=== PATIENT | female | born 1970 | race Caucasian/White ===

== ENCOUNTER → 2016-12-31 | Outpatient (CLI) | payer BC ==
[~2016-12-31] MED LIST: BUTO10SO; DICL1GEL28 TOP; DICL1GEL34 TOP; DILT120C PO; FENO54TA PO; FLUO20CA35 PO; GADAVIST IV PRN; IBUP-1050 PO; STDN NAE
--- NOTE | 2016-12-31 14:53 | DIAGNOSTIC IMAGING REPORT ---
BRAIN COMBO FOR MS CLINICAL HISTORY: Migraine headaches. Balance difficulties. Limb pain and numbness. Possible multiple sclerosis. COMPARISON STUDY: Head CT February 17, 2016. FINDINGS: There are no areas of restricted diffusion. No acute intracranial hemorrhage, midline shift or mass effect is present. Brain volume is normal. Ventricular system is normal. Basilar cisterns are patent. No extra axial collections are present. Flow-voids for the major intracranial vessels are present. There are no intracranial masses or pathologic enhancement. There is a 4 mm T2 hyperintense focus within the white matter of the right parietooccipital region shown on coronal image 20 of 28. No additional areas of signal abnormality are present. Calvarial signal is normal. Orbits are unremarkable. There is no evidence of a Chiari 1 malformation. IMPRESSION: 1. No acute intracranial findings. 2. No intracranial masses or pathologic enhancement. 3. Punctate 4 mm focus of signal abnormality within the white matter of the right parietooccipital region. This finding is of doubtful significance and the appearance is not suggestive of multiple sclerosis. Essentially, normal MRI of the brain. Electronically signed by: Paolo Fitzgerald M.D. 12/31/2016 2:51 PM Dictated Date/Time: 12/31/2016 2:40 PM
== END | disposition home or self-care (01) ==
LOC: C.MRI 13:29
PROVIDERS: ATTEND Nurse Practitioner Family
DX: R41.89 Other symptoms and signs involving cognitive functions and awareness (principal); G43.109 Migraine with aura, not intractable, without status migrainosus; R53.83 Other fatigue; R27.8 Other lack of coordination; R20.2 Paresthesia of skin

== ENCOUNTER 2017-02-12 15:33 | Emergency (ER) | payer BC ==
[~2017-02-12] VITALS: Ht 162.6 cm; Wt 92.4 kg
[~2017-02-12 15:33] MED LIST changes: -DICL1GEL34 TOP; -DILT120C PO; -FLUO20CA35 PO; -GADAVIST IV PRN; -IBUP-1050 PO; -STDN NAE
[2017-02-12 15:36] VITALS: TEMP 36.6; Ht 162.6 cm; Wt 92.4 kg
[2017-02-12] MEDS ORDERED: KETOROLAC TROMETHAMINE 60 MG/2 ML VIAL IM STA (15:49)
[2017-02-12] MEDS ORDERED: ONDANSETRON 4MG OD TAB PO ONE (16:00)
--- NOTE | 2017-02-12 16:52 | EMERGENCY ROOM VISIT NOTE ---
ED Visit Note First contact with patient: 15:39 CHIEF COMPLAINT: Migraine headache HISTORY OF PRESENT ILLNESS: This 47-year-old female patient presented to the emergency department ambulatory with a gradual onset of a severe generalized headache that started yesterday. The patient states that her migraine headaches started after a stress test yesterday. The patient states that the stress test was because she has been having exertional headaches. She had a recent CT scan and has had workup for this issue. The patient states the migraine is similar to their typical migraines. There has been associated photophobia, phonophobia, nausea and vomiting. The patient denies fever or chills recently, and there is no weakness or numbness of the extremities. There is no difficulty with speech or vision. No trauma to the head and no neck pain. The pain is severe, constant, and it is slowly increasing in severity. The patient rates the pain as throbbing and 9/10. The patient has taken her typical medications at home without relief. This is not the worst headache of the life and is similar to previous migraines. Previous imaging studies of the brain have been normal. REVIEW OF SYSTEMS: A review of systems was performed with positives and pertinent negatives listed in the history of present illness. All other systems were reviewed and are negative. ALLERGIES: Metoclopramide, morphine, prochlorperazine MEDICATIONS: See med list PMH: Migraine headache SOCIAL HISTORY: Patient lives locally with family. PHYSICAL EXAM: Vital Signs: Reviewed Nurse's notes, vital signs stable. GENERAL : This is a 47-year-old female, who appears in pain, but non toxic in appearance and in no acute distress. MENTAL STATUS: Alert, oriented, and coherent. HEENT: Normocephalic. PERRLA. EOMI. Nares patent without nuchal rigidity. Tympanic membranes pearly pimentel without erythema or effusion bilaterally. Mucous membranes moist. NECK: Supple, no nuchal rigidity, nontender, no lymphadenopathy. HEART: Regular rhythm and normal rate without murmurs, ectopy, gallops, or rubs. LUNGS: Clear to auscultation bilaterally without wheezes, rales or rhonchi. No dullness to percussion. No accessory muscle use. No retractions. SKIN: Normal. NEUROLOGICAL: Pupils are round, equal and react to light. The optic fundi are normal and the discs are flat. The patient moves all extremities well and the gait is normal. EMERGENCY DEPARTMENT COURSE: I examined the patient. The patient is on a no narcotic injection per month treatment plan for their migraines. The patient was given 4 mg Zofran ODT and 60 mg Toradol IM. The patient stated that she could not take Benadryl or Phenergan, as these made her "crazy." She did report some relief after the Zofran and Toradol and requested discharge home. The patient was instructed to follow-up very closely with her primary care provider and also specialists for further evaluation of these ongoing headaches. The differential diagnosis includes acute intracranial bleed, meningitis, encephalitis, mass or mass effect, sinusitis, infection, tumor, headache, temporal arteritis and carbon monoxide exposure, and migraine. The patient was discharged home in stable condition with a family member driving. DIAGNOSIS: Migraine headache Problem List Medical Problems: (1) Chronic migraine Status: Chronic (2) History of gastric ulcer Status: Resolved Surgical Problems: (1) History of cholecystectomy Permanent Comment: 2009 Status: Resolved (2) History of hysterectomy Permanent Comment: RENAE-BSO for endometriosis Status: Resolved Current/Historical Medications Scheduled Fluoxetine (Prozac), 20 MG PO DAILY Scheduled PRN Butorphanol Tartrate (Butorphanol Tartrate), 1 SPRAY YESENIA Q3HRS PRN for Migraine Diclofenac Sodium (Topical) (Diclofenac Sodium), 1 APPLN TOP QID PRN for Pain Ibuprofen (Advil), 400-600 MG PO Q6H PRN for Pain Allergies Coded Allergies: Metoclopramide (Verified Allergy, Unknown, "crazy", 09/24/16) Prochlorperazine (Verified Allergy, Unknown, "crazy", 09/24/16) Morphine (Verified Adverse Reaction, Unknown, GI SYMPTOMS, 09/24/16) Vital Signs Date Time Temp Pulse Resp B/P Pulse Ox O2 Delivery O2 Flow Rate FiO2 02/12/17 17:18 81 17 149/99 99 02/12/17 15:36 36.6 101 18 152/104 100 Room Air Medications Administered Medications (Trade) Dose Ordered Sig/Ronal Route Start Time Stop Time Status Last Admin Dose Admin Ketorolac Tromethamine (Toradol Inj) 60 mg NOW STAT IM 02/12/17 15:49 02/12/17 15:50 DC 02/12/17 16:19 60 MG Ondansetron HCl (Zofran Odt) 4 mg ONE ONCE PO 02/12/17 16:00 02/12/17 16:01 DC 02/12/17 16:19 4 MG Departure Information Impression Primary Impression: Migraine Dispostion Home / Self-Care Condition GOOD Referrals Joanna Portillo (PCP) Patient Instructions My [facility] Additional Instructions You have been treated in the Emergency Department for a Headache. For pain control, you can use the following [id number] medicines (if >12 yo): - Regular strength (325mg/tab) Tylenol (acetaminophen) 2 tabs every 4-6 hours as needed. Do not exceed 12 tablets in a 24 hour period. Avoid taking more than 4 grams (4000 mg) of Tylenol per day. This includes any other sources of acetaminophen you may take on a regular basis. - Regular strength (200 mg/tab) Advil (ibuprofen) 1-2 tabs every 4-6 hours as needed. Do not exceed a dose of 3200 mg per day. You should relax in a quiet, dark place for the rest of the day. Avoid any possible triggers including: cigarette smoke, caffeine, nicotine, chocolate, wine, beer, loud noises or music, or bright lights. You should schedule a follow-up appointment in 2-3 days with your Primary Care Provider or established Neurologist for further evaluation and treatment of your Headache. Return to the Emergency Department if your current symptoms worsen despite treatment course outlined above, or if you develop any of the following symptoms : intractable pain despite aforementioned treatment course, visual disturbances , loss of vision, unilateral weakness or facial drooping, slurring of speech, loss of coordination, or loss of consciousness. Problem Qualifiers Primary Impression: Migraine Migraine type: unspecified Status migrainosus presence: without status migrainosus Intractability: not intractable Qualified Codes: G43.909 - Migraine, unspecified, not intractable, without status migrainosus
[2017-02-12 17:18] VITALS: BP 149/99; PULSE 81; O2SAT 99
== END 2017-02-12 17:05 | disposition home or self-care (01) ==
LOC: C.EDB 15:34 → C.EDD 17:05
DX: G43.909 Migraine, unspecified, not intractable, without status migrainosus (principal); Z90.49 Acquired absence of other specified parts of digestive tract; Z90.710 Acquired absence of both cervix and uterus; Z79.899 Other long term (current) drug therapy

== ENCOUNTER 2017-03-31 14:54 | Emergency (ER) | payer BC ==
[~2017-03-31] VITALS: Ht 162.6 cm; Wt 93.2 kg
[2017-03-31 14:59] VITALS: TEMP 36.5; Ht 162.6 cm; Wt 93.2 kg
[2017-03-31 15:28] LABS: BASO % 0.6 %; BASO ABS # 0.06 K/uL (0-0.2); COMPLETE YES; EOS % 4.7 %; IG% 0.3 %; LYMPH % 29.4 %; LYMPH ABS # 3.04 K/uL (1.2-3.4); MEAN CELL VOLUME 88.5 fL (80-100); MEAN CORPUSCULAR HEMOGLOBIN 28.3 pg (25-34); MEAN PLATELET VOLUME 8.9 fL (7.4-10.4); MONO % 9.4 %; NEUT % 55.6 %; PLATELET COUNT 333 K/uL (130-400); RED BLOOD COUNT 4.52 M/uL (4.2-5.4); WHITE BLOOD COUNT 10.34 K/uL (4.8-10.8)
[2017-03-31] MEDS ORDERED: DILT120C PO (15:35)
--- NOTE | 2017-03-31 15:52 | DIAGNOSTIC IMAGING REPORT ---
CT SCAN OF THE ABDOMEN AND PELVIS WITHOUT IV CONTRAST CLINICAL HISTORY: Right flank pain. Hematuria. COMPARISON STUDY: Abdominal CT dated 01/02/2016. TECHNIQUE: CT scan of the abdomen and pelvis is performed from the lung bases to the proximal femora. Images are reviewed in the axial, sagittal, and coronal planes. IV contrast was not administered for this examination as per the referring clinician. Automated dose control exposure was utilized. CT DOSE: 1265.42 mGy.cm FINDINGS: Lung bases: The heart is normal in size and without pericardial effusion. The lung bases are clear. Liver: The unenhanced liver is normal in size, contour, and attenuation. There is no intrahepatic biliary ductal dilatation. Gallbladder: Surgically absent noting clips in the gallbladder fossa. Spleen: Normal in size and attenuation. Pancreas: Unremarkable. Adrenal glands: Unremarkable. Kidneys: The unenhanced kidneys are normal in size and without hydronephrosis. There is a 3 mm nonobstructing calculus in the lower pole of the left kidney. A 2 mm nonobstructing calculus is seen in the right lower pole. There is no evidence of contour deforming renal mass lesion. Abdominal vasculature: The abdominal aorta is normal in course and caliber. Bowel: The small bowel and colon are normal in course and caliber. The appendix is well-visualized and normal. Peritoneum: There is no intraperitoneal free air or abdominal ascites. There is a small fat-containing umbilical hernia. Lymphadenopathy: None. Pelvic viscera: The bladder is decompressed and grossly unremarkable. The uterus is surgically absent. No adnexal lesion is seen. Skeletal structures: No lytic or blastic lesions are seen. IMPRESSION: 1. There are no acute infectious or inflammatory findings in the abdomen or pelvis. 2. Small bilateral nonobstructing renal calculi. Electronically signed by: Guillermo Poe M.D. 03/31/2017 3:51 PM Dictated Date/Time: 03/31/2017 3:46 PM
[2017-03-31 15:54] LABS: BUN/CREATININE RATIO 21.4 (10-20); CALCIUM 9.7 mg/dl (8.5-10.1); CREATININE 0.82 mg/dl (0.60-1.20); POTASSIUM 3.8 mmol/L (3.5-5.1)
[2017-03-31 15:54] LABS: URINE APPEARANCE CLEAR (CLEAR); URINE BILIRUBIN NEG (NEG); URINE COLOR YELLOW; URINE EPITHELIAL CELL AUTO 20-30 /lpf (0-5); URINE NITRITE NEG (NEG); URINE SPECIFIC GRAVITY 1.019 (1.000-1.030); UROBILINOGEN NEG (NEG); ZZUR CULT IF INDIC CLEAN CATCH NO
[2017-03-31 15:57] LABS: ALB/GLOB RATIO 0.9 (0.9-2)
[2017-03-31 15:58] LABS: MANUAL MICROSCOPIC REQUIRED? NO; REVIEW REQ? NO
[2017-03-31] MEDS ORDERED: KETOROLAC TROMETHAMINE 30 MG/ML VIAL IV STA (16:13)
[2017-03-31] MEDS ORDERED: FLUO20CA35 PO (16:16)
[2017-03-31] MEDS ORDERED: STDN NAE (16:17)
[2017-03-31] MEDS ORDERED: DICL1GEL34 TOP (16:17)
--- NOTE | 2017-03-31 16:18 | DIAGNOSTIC IMAGING REPORT ---
SINGLE VIEW CHEST CLINICAL HISTORY: Right-sided back pain. FINDINGS: An AP, portable, upright chest radiograph is compared to study dated 09/24/2016. The cardiomediastinal silhouette is unremarkable. There is mild elevation of the right hemidiaphragm. The lungs and pleural spaces are clear. No pneumothorax is seen. The bony thorax is grossly intact. IMPRESSION: No active disease in the chest. Electronically signed by: Guillermo Poe M.D. 03/31/2017 4:17 PM Dictated Date/Time: 03/31/2017 4:14 PM
--- NOTE | 2017-03-31 16:33 | EMERGENCY ROOM VISIT NOTE ---
History First contact with patient: 15:03 Chief Complaint: FLANK PAIN Stated Complaint: SIDE/BACK PAIN History of Present Illness The patient is a 47 year old female who presents to the Emergency Room with complaints of right flank pain which started yesterday. The patient states that she has had pain in the right side of her back since yesterday. She was seen at her primary care provider and had a urine test done. She was told that there was blood in her urine and she needed to come here to rule out a kidney stone. She states that she has been urinating frequently but denies any other urinary symptoms. She denies any nausea, vomiting, changes in bowel movements, chest pain, cough or shortness of breath. She does state she had pneumonia recently and did have pain in the back with that. She does have a history of kidney stones several years ago. She has a history of a hysterectomy and cholecystectomy. She rates her current discomfort an 8/10 and did not take any medication at home. Review of Systems A complete 10 point review of systems was reviewed with the patient with pertinent positives and negatives as per history of present illness. All else were negative. Past Medical/Surgical History Medical Problems: (1) Chronic migraine (2) History of gastric ulcer (3) RUQ abdominal pain Surgical Problems: (1) History of cholecystectomy (2) History of hysterectomy Family History No pertinent family history Social History Smoking Status: Never Smoker Alcohol Use: occasionally Drug Use: none Marital Status: Housing Status: lives with family Occupation Status: employed Current/Historical Medications Scheduled Diltiazem Hcl Coated Beads (Diltiazem Hcl Er), 120 MG PO DAILY Fluoxetine (Prozac), 20 MG PO DAILY Scheduled PRN Butorphanol Tartrate (Butorphanol Tartrate), 1 SPRAY YESENIA Q3HRS PRN for Migraine Diclofenac Sodium (Topical) (Diclofenac Sodium), 1 APPLN TOP QID PRN for Pain Ibuprofen (Advil), 400-600 MG PO Q6H PRN for Pain Allergies Coded Allergies: Metoclopramide (Verified Allergy, Unknown, "crazy", 09/24/16) Prochlorperazine (Verified Allergy, Unknown, "crazy", 09/24/16) Morphine (Verified Adverse Reaction, Unknown, GI SYMPTOMS, 09/24/16) Physical Exam Vital Signs Date Time Temp Pulse Resp B/P Pulse Ox O2 Delivery O2 Flow Rate FiO2 5/16/17 16:39 88 20 140/89 99 03/31/17 14:59 36.5 94 16 135/89 100 Room Air Physical Exam VITALS: Vitals are noted on the nurse's note and reviewed by myself. Vital signs stable. GENERAL: This is a 47-year-old female, in no acute distress, nondiaphoretic, well-developed well-nourished. SKIN: Capillary reflex less than 2 seconds. HEENT: Normocephalic. PERRLA. EOMI. Nares patent. Mucous membranes moist. Neck is supple without nuchal rigidity. HEART: Regular rate and rhythm without murmurs gallops or rubs. LUNGS: Clear to auscultation bilaterally without wheezes, rales or rhonchi. ABDOMEN: Positive bowel sounds x 4. Soft, nontender to palpation. MUSCULOSKELETAL: Mild right CVA tenderness. NEURO: Patient was alert and oriented to person place and time. Medical Decision & Procedures ER Provider Diagnostic Interpretation: SINGLE VIEW CHEST FINDINGS: An AP, portable, upright chest radiograph is compared to study dated 09/24/2016. The cardiomediastinal silhouette is unremarkable. There is mild elevation of the right hemidiaphragm. The lungs and pleural spaces are clear. No pneumothorax is seen. The bony thorax is grossly intact. IMPRESSION: No active disease in the chest. CT SCAN OF THE ABDOMEN AND PELVIS WITHOUT IV CONTRAST FINDINGS: Lung bases: The heart is normal in size and without pericardial effusion. The lung bases are clear. Liver: The unenhanced liver is normal in size, contour, and attenuation. There is no intrahepatic biliary ductal dilatation. Gallbladder: Surgically absent noting clips in the gallbladder fossa. Spleen: Normal in size and attenuation. Pancreas: Unremarkable. Adrenal glands: Unremarkable. Kidneys: The unenhanced kidneys are normal in size and without hydronephrosis. There is a 3 mm nonobstructing calculus in the lower pole of the left kidney. A 2 mm nonobstructing calculus is seen in the right lower pole. There is no evidence of contour deforming renal mass lesion. Abdominal vasculature: The abdominal aorta is normal in course and caliber. Bowel: The small bowel and colon are normal in course and caliber. The appendix is well-visualized and normal. Peritoneum: There is no intraperitoneal free air or abdominal ascites. There is a small fat-containing umbilical hernia. Lymphadenopathy: None. Pelvic viscera: The bladder is decompressed and grossly unremarkable. The uterus is surgically absent. No adnexal lesion is seen. Skeletal structures: No lytic or blastic lesions are seen. IMPRESSION: 1. There are no acute infectious or inflammatory findings in the abdomen or pelvis. 2. Small bilateral nonobstructing renal calculi. Laboratory Results 03/31/17 15:20 Red Blood Count 4.52, Mean Corpuscular Volume 88.5, Mean Corpuscular Hemoglobin 28.3, Mean Corpuscular Hemoglobin Concent 32.0, Mean Platelet Volume 8.9, Neutrophils (%) (Auto) 55.6, Lymphocytes (%) (Auto) 29.4, Monocytes (%) (Auto) 9.4, Eosinophils (%) (Auto) 4.7, Basophils (%) (Auto) 0.6, Neutrophils # (Auto) 5.75, Lymphocytes # (Auto) 3.04, Monocytes # (Auto) 0.97, Eosinophils # (Auto) 0.49, Basophils # (Auto) 0.06 03/31/17 15:20 Test 03/31/17 15:20 03/31/17 15:25 White Blood Count 10.34 K/uL (4.8-10.8) Red Blood Count 4.52 M/uL (4.2-5.4) Hemoglobin 12.8 g/dL (12.0-16.0) Hematocrit 40.0 % (37-47) Mean Corpuscular Volume 88.5 fL (80-100) Mean Corpuscular Hemoglobin 28.3 pg (25-34) Mean Corpuscular Hemoglobin Concent 32.0 g/dl (32-36) Platelet Count 333 K/uL (130-400) Mean Platelet Volume 8.9 fL (7.4-10.4) Neutrophils (%) (Auto) 55.6 % Lymphocytes (%) (Auto) 29.4 % Monocytes (%) (Auto) 9.4 % Eosinophils (%) (Auto) 4.7 % Basophils (%) (Auto) 0.6 % Neutrophils # (Auto) 5.75 K/uL (1.4-6.5) Lymphocytes # (Auto) 3.04 K/uL (1.2-3.4) Monocytes # (Auto) 0.97 K/uL (0.11-0.59) Eosinophils # (Auto) 0.49 K/uL (0-0.5) Basophils # (Auto) 0.06 K/uL (0-0.2) RDW Standard Deviation 47.0 fL (36.4-46.3) RDW Coefficient of Variation 14.4 % (11.5-14.5) Immature Granulocyte % (Auto) 0.3 % Immature Granulocyte # (Auto) 0.03 K/uL (0.00-0.02) Anion Gap 6.0 mmol/L (3-11) Est Creatinine Clear Calc Drug Dose 93.9 ml/min Estimated GFR () 98.8 Estimated GFR (Non- 85.2 BUN/Creatinine Ratio 21.4 (10-20) Calcium Level 9.7 mg/dl (8.5-10.1) Total Bilirubin 0.5 mg/dl (0.2-1) Aspartate Amino Transf (AST/SGOT) 15 U/L (15-37) Alanine Aminotransferase (ALT/SGPT) 23 U/L (12-78) Alkaline Phosphatase 113 U/L (45-117) Total Protein 8.6 gm/dl (6.4-8.2) Albumin 4.1 gm/dl (3.4-5.0) Globulin 4.5 gm/dl (2.5-4.0) Albumin/Globulin Ratio 0.9 (0.9-2) Urine Color YELLOW Urine Appearance CLEAR (CLEAR) Urine pH 5.0 (4.5-7.5) Urine Specific [place] 1.019 (1.000-1.030) Urine Protein NEG (NEG) Urine Glucose (UA) NEG (NEG) Urine Ketones NEG (NEG) Urine Occult Blood TRACE (NEG) Urine Nitrite NEG (NEG) Urine Bilirubin NEG (NEG) Urine Urobilinogen NEG (NEG) Urine Leukocyte Esterase NEG (NEG) Urine WBC (Auto) 1-5 /hpf (0-5) Urine RBC (Auto) 0-4 /hpf (0-4) Urine Hyaline Casts (Auto) 0 /lpf (0-5) Urine Epithelial Cells (Auto) 20-30 /lpf (0-5) Urine Bacteria (Auto) NEG (NEG) Urine Test NEG (NEG) Medications Administered Medications (Trade) Dose Ordered Sig/Ronal Route Start Time Stop Time Status Last Admin Dose Admin Ketorolac Tromethamine (Toradol Inj) 30 mg NOW STAT IV 03/31/17 16:13 03/31/17 16:14 DC 03/31/17 16:27 30 MG ED Course The patient was evaluated as above. Labs were drawn and IV access was obtained. Patient was medicated with 30 mg Toradol IV. Patient was reevaluated and requested more pain medication. She was reminded that she is on a no narcotic treatment plan at this facility. Discharge instructions were reviewed with the patient. The patient verbalized understanding of my assessment and treatment plan and was discharged home in good condition. Medical Decision Differential diagnosis includes renal calculus, pyelonephritis, pneumonia, musculoskeletal pain, among others. The patient is a 47-year-old female who presents today complaining of right flank pain. Labs revealed no leukocytosis, anemia, or electrolyte abnormalities. Urinalysis was not suggestive of infection. CT scan of the abdomen/pelvis was performed and showed bilateral nonobstructing renal calculi, but no obstructing stones. Chest x-ray was obtained and showed no evidence of pneumonia. I feel the patient's pain is likely musculoskeletal. Based on the patient's presentation and work up, I feel the patient is stable for outpatient treatment. The patient was educated to return to the emergency department for any worsening of their current condition or new/concerning symptoms. She will follow up with her primary care provider as needed. Impression Primary Impression: Right flank pain Departure Information Dispostion Home / Self-Care Condition GOOD Referrals Joanna Portillo (PCP) Patient Instructions My [facility] Additional Instructions You have been treated in the Emergency Department your Abdominal Pain. Laboratory results and imaging studies have ruled out any emergent causes for your abdominal pain which would warrant admission or surgery. For pain control, you can use the following [id number] medicines (if >12 yo): - Regular strength (325mg/tab) Tylenol (acetaminophen) 2 tabs every 4-6 hours as needed. Do not exceed 12 tablets in a 24 hour period. Avoid taking more than 4 grams (4000 mg) of Tylenol per day. This includes any other sources of acetaminophen you may take on a regular basis. - Regular strength (200 mg/tab) Advil (ibuprofen) 1-2 tabs every 4-6 hours as needed. Do not exceed a dose of 3200 mg per day. Drink plenty of water and stay well hydrated. As with any trip to the Emergency Department, you should follow-up with your Primary Care Provider from today's visit. Return to the emergency department if your symptoms persist despite treatment plan outlined above or if the following symptoms occur: increased fevers, chills , worsening nausea/vomiting, blood in your stool or urine.
[2017-03-31 16:39] VITALS: BP 140/89; PULSE 88; O2SAT 99
[2017-03-31] MEDS ORDERED: IBUP-1050 PO (17:31)
== END 2017-03-31 16:43 | disposition home or self-care (01) ==
LOC: C.EDB 14:56 → C.EDC 16:43
DX: R10.30 Lower abdominal pain, unspecified (principal); Z87.442 Personal history of urinary calculi; Z90.49 Acquired absence of other specified parts of digestive tract; Z90.710 Acquired absence of both cervix and uterus; Z79.899 Other long term (current) drug therapy

== ENCOUNTER → 2017-04-09 | Outpatient (CLI) | payer BC ==
[~2017-04-09] MED LIST changes: -BUTO10SO; -DICL1GEL28 TOP; +DICL1GEL34 TOP; +DILT120C PO; -FENO54TA PO; +FLUO20CA35 PO; +IBUP-1050 PO; +MOME220A PO; +STDN NAE
[2017-04-09 16:39] LABS: BASO % 0.4 %; BASO ABS # 0.04 K/uL (0-0.2); COMPLETE YES; EOS % 3.9 %; HEMATOCRIT 39.1 % (37-47); IG% 0.2 %; LYMPH % 31.1 %; LYMPH ABS # 2.95 K/uL (1.2-3.4); MEAN CELL VOLUME 88.3 fL (80-100); MEAN CORPUSCULAR HEMOGLOBIN 28.9 pg (25-34); MEAN CORPUSCULAR HGB CONC 32.7 g/dl (32-36); MONO % 9.8 %; NEUT % 54.6 %; PLATELET COUNT 360 K/uL (130-400); RED BLOOD COUNT 4.43 M/uL (4.2-5.4); WHITE BLOOD COUNT 9.49 K/uL (4.8-10.8)
[2017-04-09 16:50] LABS: URINE APPEARANCE CLEAR (CLEAR); URINE BILIRUBIN NEG (NEG); URINE COLOR YELLOW; URINE EPITHELIAL CELL AUTO 0-5 /lpf (0-5); URINE NITRITE NEG (NEG); URINE SPECIFIC GRAVITY 1.022 (1.000-1.030); UROBILINOGEN NEG (NEG)
[2017-04-09 16:54] LABS: MANUAL MICROSCOPIC REQUIRED? NO; REVIEW REQ? NO
[2017-04-09 17:02] LABS: ALT/SGPT 21 U/L (12-78); AST/SGOT 15 U/L (15-37); C-REACTIVE PROTEIN 1.55 mg/dl (0-0.29); CREATININE 0.82 mg/dl (0.60-1.20)
[2017-04-09 17:05] LABS: ALKALINE PHOSPHATASE 104 U/L (45-117); RHEUMATOID FACTOR < 10.0 U/mL (0-15); TOTAL IRON BINDING CAPACITY 372 mcg/dl (250-450)
[2017-04-12 17:38] LABS: PARVOVIRUS IgG INDEX 8.9 (<0.9); PARVOVIRUS IgM INDEX 0.3 (<0.9)
== END | disposition home or self-care (01) ==
LOC: C.LAB1850 15:45
PROVIDERS: ATTEND Internal Medicine Rheumatology
DX: M13.0 Polyarthritis, unspecified (principal); R76.8 Other specified abnormal immunological findings in serum; R79.82 Elevated C-reactive protein (CRP)

== ENCOUNTER → 2017-04-15 | Outpatient (CLI) | payer BC ==
--- NOTE | 2017-04-15 13:00 | DIAGNOSTIC IMAGING REPORT ---
RIGHT HAND 3 VIEWS CLINICAL HISTORY: Polyarthritis. FINDINGS: 3 views of the right hand are obtained. No prior studies are available for comparison at the time of dictation. The skeletal structures are well mineralized. No fracture is seen. The joint spaces of the hand are well-maintained. No erosive change is suspected. The overlying soft tissues are within normal limits. IMPRESSION: Unremarkable radiographic assessment of the right hand. Electronically signed by: Guillermo Poe M.D. 04/15/2017 12:59 PM Dictated Date/Time: 04/15/2017 12:58 PM
--- NOTE | 2017-04-15 13:06 | DIAGNOSTIC IMAGING REPORT ---
LEFT HAND MIN 3 VIEWS ROUTINE CLINICAL HISTORY: Polyarthritis. Positive ELIF. COMPARISON: None FINDINGS: A ring on the fourth finger is noted. There is no acute fracture or suspicious lesion within the left hand. No erosions are identified. Joint spaces are preserved. IMPRESSION: Unremarkable left hand radiographs. Electronically signed by: Paolo Fitzgerald M.D. 04/15/2017 1:05 PM Dictated Date/Time: 04/15/2017 1:04 PM
--- NOTE | 2017-04-15 14:27 | DIAGNOSTIC IMAGING REPORT ---
RIGHT SHOULDER MIN 2 VIEWS ROUTINE CLINICAL HISTORY: Right shoulder pain. Polyarthritis. Positive ELIF. COMPARISON: None FINDINGS: Alignment of the right shoulder is anatomic. There is no acute fracture. No suspicious osseous lesions identified. There is mild osteophytosis of the right acromioclavicular joint. No erosions are identified. IMPRESSION: 1. No acute fracture. 2. Mild osteoarthritis of the right acromioclavicular joint. Electronically signed by: Paolo Fitzgerald M.D. 04/15/2017 2:26 PM Dictated Date/Time: 04/15/2017 2:25 PM
--- NOTE | 2017-04-15 15:53 | DIAGNOSTIC IMAGING REPORT ---
WHOLE BODY BONE SCAN HISTORY: M13.0 Polyarthritis, [id number] Positive ELIF (antinuclear RADIOTRACER: 26.9 mCi Tc-99m MDP STUDY/IMAGES: Planar anterior and posterior whole body imaging was performed 3 hours following the intravenous administration of radiotracer. COMPARISON: Bilateral hands and right shoulder 04/15/2017. FINDINGS: Symmetric diffuse radiotracer uptake seen within the wrists is likely within the range normal limits. No abnormal radiotracer uptake within the hands. There is symmetric mild radiotracer uptake along the cortex of the mid shafts of the bilateral tibia. No additional areas of abnormal radiotracer uptake identified within the axial or appendicular skeleton. IMPRESSION: Symmetric mild radiotracer uptake seen within the cortex of the mid shafts of the bilateral tibia. This could be related to abnormal periosteal reaction or hennessy splints. Dedicated radiographs of the bilateral tibia is recommended. Electronically signed by: Jay Florez M.D. 04/15/2017 3:52 PM Dictated Date/Time: 04/15/2017 3:48 PM
== END | disposition home or self-care (01) ==
LOC: C.NUCL 12:06
PROVIDERS: ATTEND Internal Medicine Rheumatology
DX: R79.82 Elevated C-reactive protein (CRP) (principal); M13.0 Polyarthritis, unspecified; R76.8 Other specified abnormal immunological findings in serum

== ENCOUNTER → 2017-06-22 | Outpatient (CLI) | payer BC ==
[~2017-06-22] MED LIST changes: -MOME220A PO
--- NOTE | 2017-06-22 14:14 | DIAGNOSTIC IMAGING REPORT ---
LEFT TIBIA/FIBULA 2 VIEWS ROUTINE, RIGHT TIBIA/FIBULA 2 VIEWS ROUTINE HISTORY: 47 years-old Female M13.0 Polyarthritis, [id number] Positive ELIF (antinuclear COMPARISON: None available TECHNIQUE: 2 views of the bilateral tibia and fibula FINDINGS: Right tibia and fibula: There is minimal medial compartment joint space narrowing. There is enthesopathy noted at the superior pole of the patella at the quadriceps insertion site. There is no acute fracture or dislocation identified. No erosive changes. Soft tissues are within normal limits without right opaque foreign body. Left tibia and fibula: There is mild medial compartment joint space narrowing. There is no acute fracture or dislocation. There is enthesopathy noted at the superior pole of the patella at the quadriceps insertion site. No erosive changes. No osteochondral defect of the talar dome. IMPRESSION: 1. No acute fracture or dislocation of either the left or right tibia and fibula. 2. Mild medial compartment joint space narrowing is present within the knees bilaterally. The above report was generated using voice recognition software. It may contain grammatical, syntax or spelling errors. Electronically signed by: Skip Rodriguez M.D. 06/22/2017 2:13 PM Dictated Date/Time: 06/22/2017 2:09 PM
== END | disposition home or self-care (01) ==
LOC: C.RAD1850 13:57
PROVIDERS: ATTEND Internal Medicine Rheumatology
DX: M13.0 Polyarthritis, unspecified (principal); R79.82 Elevated C-reactive protein (CRP); R76.8 Other specified abnormal immunological findings in serum

== ENCOUNTER → 2017-07-29 | Outpatient (CLI) | payer BC ==
[2017-07-29 15:31] LABS: BASO % 0.7 %; BASO ABS # 0.06 K/uL (0-0.2); COMPLETE YES; EOS % 5.1 %; HEMATOCRIT 40.5 % (37-47); IG% 0.1 %; LYMPH % 31.4 %; LYMPH ABS # 2.61 K/uL (1.2-3.4); MEAN CELL VOLUME 87.9 fL (80-100); MEAN CORPUSCULAR HEMOGLOBIN 28.9 pg (25-34); MEAN CORPUSCULAR HGB CONC 32.8 g/dl (32-36); MEAN PLATELET VOLUME 9.9 fL (7.4-10.4); MONO % 7.2 %; NEUT % 55.5 %; PLATELET COUNT 314 K/uL (130-400); RED BLOOD COUNT 4.61 M/uL (4.2-5.4); WHITE BLOOD COUNT 8.31 K/uL (4.8-10.8)
[2017-07-29 15:42] LABS: CREATININE 0.78 mg/dl (0.60-1.20)
[2017-08-03 15:39] LABS: ANTI-CENTROMERE AB <1.0 NEG AI (<1.0 NEG); ANTI-SS-A <1.0 NEG AI (<1.0 NEG); ANTI-SS-B <1.0 NEG AI (<1.0 NEG); DNA ds CRITHIDIA NEGATIVE (NEGATIVE); Sm Antibody <1.0 NEG AI (<1.0 NEG)
== END | disposition home or self-care (01) ==
LOC: C.LAB1850 13:37
PROVIDERS: ATTEND Internal Medicine Rheumatology
DX: M13.0 Polyarthritis, unspecified (principal); R76.8 Other specified abnormal immunological findings in serum; R79.82 Elevated C-reactive protein (CRP)

== ENCOUNTER → 2017-09-08 | Outpatient (CLI) | payer BC | END | disposition home or self-care (01) | LOC: C.LAB1850 13:55 | PROVIDERS: ATTEND Internal Medicine Rheumatology | DX: G43.709 Chronic migraine without aura, not intractable, without status migrainosus (principal); M13.0 Polyarthritis, unspecified; R76.8 Other specified abnormal immunological findings in serum; R70.0 Elevated erythrocyte sedimentation rate ==

== ENCOUNTER 2017-10-22 13:43 | Emergency (ER) | payer BC ==
[~2017-10-22] VITALS: Ht 162.6 cm; Wt 93.2 kg
[2017-10-22 13:45] VITALS: TEMP 36.4; Ht 162.6 cm; Wt 93.2 kg
[2017-10-22] MEDS ORDERED: MOME220A PO (14:07)
[2017-10-22] MEDS ORDERED: LORAZEPAM 2 MG/ML 1 ML VIAL IV STA ×2 (14:16→15:20)
[2017-10-22] MEDS ORDERED: SODIUM CHLORIDE 0.9% 1000ML 1,000 ML IV STA (14:16)
[2017-10-22] MEDS ORDERED: KETOROLAC TROMETHAMINE 30 MG/ML VIAL IV STA (14:16)
[2017-10-22] MEDS ORDERED: ONDANSETRON INJ 2 MG/ML 2 ML VIAL IV STA (14:16)
--- NOTE | 2017-10-22 14:20 | EMERGENCY ROOM VISIT NOTE ---
History Report prepared by Pelon: Nito eBllo Under the Supervision of: Dr. Bimal Sesay M.D. First contact with patient: 14:03 Chief Complaint: HEADACHE Stated Complaint: MIGRAINE History of Present Illness The patient is a 47 year old female who presents to the Emergency Room with complaints of a migraine that started a few hours ago suddenly. Her migraine is generalized with increased pain in her right eye and right side of her neck are worse with movement. She took 2 Aleve and her migraine worsened. This episode is worse than her normal migraine episodes which typically involve a tingling sensation. She endorses nausea but denies vomiting. Of note, the patient had mononucleosis and has limited dietary intake. Of note, the patient is anxious appearing. Source of History: patient Position: eye (right), neck (Right side worse with movement ) Modifying Factors (Worsening): other (Aleve ) Associated Symptoms: + nausea, No vomiting Note: limited dietary intact with recent history of mononucleosis Review of Systems See HPI for pertinent positives & negatives. A total of 10 systems reviewed and were otherwise negative. Past Medical & Surgical Medical Problems: (1) Chronic migraine (2) History of gastric ulcer (3) RUQ abdominal pain Surgical Problems: (1) History of cholecystectomy (2) History of hysterectomy Family History No pertinent family history Social History Smoking Status: Never Smoker Alcohol Use: occasionally Drug Use: none Marital Status: Housing Status: lives with family Occupation Status: employed Current/Historical Medications Scheduled Diltiazem Hcl Coated Beads (Diltiazem Hcl Er), 120 MG PO DAILY Fluoxetine (Prozac), 20 MG PO DAILY Mometasone Furoate (Inhalation (Asmanex Twisthaler 120 Me), 2 PUFF PO BID Scheduled PRN Butorphanol Tartrate (Butorphanol Tartrate), 1 SPRAY YESENIA Q3HRS PRN for Migraine Diclofenac Sodium (Topical) (Diclofenac Sodium), 1 APPLN TOP QID PRN for Pain Ibuprofen (Advil), 400-600 MG PO Q6H PRN for Pain Allergies Coded Allergies: Metoclopramide (Verified Allergy, Unknown, "crazy", 10/22/17) Prochlorperazine (Verified Allergy, Unknown, "crazy", 10/22/17) Morphine (Verified Adverse Reaction, Unknown, GI SYMPTOMS, 10/22/17) Physical Exam Vital Signs Date Time Temp Pulse Resp B/P (MAP) Pulse Ox O2 Delivery O2 Flow Rate FiO2 10/22/17 16:50 75 16 131/81 97 10/22/17 14:43 92 18 134/95 97 Room Air 10/22/17 13:45 36.4 90 18 147/99 98 Room Air Physical Exam GENERAL: Patient is well appearing and in mild distress. HEAD: No acute trauma, normocephalic atraumatic ENT: Mucous membranes moist, no nasal congestion. EYES: Equal/Reactive Bilaterally, No scleral icterus, Normal ROM NECK: No nuchal rigidity, no meningismus, trachea is midline, full ROM LUNGS: No dyspnea. Clear to auscultation and equal bilaterally. No wheeze, no rhonchi. HEART: Regular rate and rhythm. No murmurs, rubs, gallops appreciated. ABDOMEN: Soft, nontender, bowel sounds positive, no masses appreciated, no peritonitis. BACK: No midline tenderness, no CVA tenderness EXTREMITIES: Normal motion all extremities, no cyanosis, no edema. NEUROLOGIC: Awake, Alert, Oriented, no acute motor or sensory deficits, no focal weakness, cranial nerves grossly intact. SKIN: No rash, no jaundice, no diaphoresis. Medical Decision & Procedures ER Provider Diagnostic Interpretation: HEAD WITHOUT CONTRAST (CT) CLINICAL HISTORY: 47 years-old Female with sudden onset headache 3 hrs earlier. Acute headache TECHNIQUE: Multiple axial CT images of the head were obtained without contrast. A dose lowering technique was utilized adhering to the principles of ALARA. CT DOSE: 638.56 mGycm COMPARISON: CT head 02/17/2016. FINDINGS: No acute intracranial hemorrhage, midline shift, intracranial mass, hydrocephalus, territorial ischemia or abnormal extra-axial collection. The calvarium is intact. The paranasal sinuses, mastoid air cells, and middle ear cavities are clear. IMPRESSION: No acute intracranial abnormality. The above report was generated using voice recognition software. It may contain grammatical, syntax or spelling errors. Electronically signed by: Skip Rodriguez M.D. 10/22/2017 3:12 PM Laboratory Results 10/22/17 14:25 Red Blood Count 4.47, Mean Corpuscular Volume 89.3, Mean Corpuscular Hemoglobin 29.3, Mean Corpuscular Hemoglobin Concent 32.8, Mean Platelet Volume 9.4, Neutrophils (%) (Auto) 52.6, Lymphocytes (%) (Auto) 35.5, Monocytes (%) (Auto) 7.3, Eosinophils (%) (Auto) 3.5, Basophils (%) (Auto) 0.8, Neutrophils # (Auto) 5.35, Lymphocytes # (Auto) 3.61, Monocytes # (Auto) 0.74, Eosinophils # (Auto) 0.36, Basophils # (Auto) 0.08 10/22/17 14:25 Test 10/22/17 14:25 White Blood Count 10.17 K/uL (4.8-10.8) Red Blood Count 4.47 M/uL (4.2-5.4) Hemoglobin 13.1 g/dL (12.0-16.0) Hematocrit 39.9 % (37-47) Mean Corpuscular Volume 89.3 fL (80-100) Mean Corpuscular Hemoglobin 29.3 pg (25-34) Mean Corpuscular Hemoglobin Concent 32.8 g/dl (32-36) Platelet Count 344 K/uL (130-400) Mean Platelet Volume 9.4 fL (7.4-10.4) Neutrophils (%) (Auto) 52.6 % Lymphocytes (%) (Auto) 35.5 % Monocytes (%) (Auto) 7.3 % Eosinophils (%) (Auto) 3.5 % Basophils (%) (Auto) 0.8 % Neutrophils # (Auto) 5.35 K/uL (1.4-6.5) Lymphocytes # (Auto) 3.61 K/uL (1.2-3.4) Monocytes # (Auto) 0.74 K/uL (0.11-0.59) Eosinophils # (Auto) 0.36 K/uL (0-0.5) Basophils # (Auto) 0.08 K/uL (0-0.2) RDW Standard Deviation 47.2 fL (36.4-46.3) RDW Coefficient of Variation 14.4 % (11.5-14.5) Immature Granulocyte % (Auto) 0.3 % Immature Granulocyte # (Auto) 0.03 K/uL (0.00-0.02) Anion Gap 6.0 mmol/L (3-11) Est Creatinine Clear Calc Drug Dose 95.0 ml/min Estimated GFR () 100.2 Estimated GFR (Non- 86.5 BUN/Creatinine Ratio 23.2 (10-20) Calcium Level 10.3 mg/dl (8.5-10.1) Troponin I 0.015 ng/ml (0-0.045) Laboratory results as reviewed by me. Medications Administered Medications (Trade) Dose Ordered Sig/Ronal Route Start Time Stop Time Status Last Admin Dose Admin Sodium Chloride 1,000 ml @ 999 mls/hr Q1H1M STAT IV 10/22/17 14:16 10/22/17 15:16 DC 10/22/17 14:39 999 MLS/HR Lorazepam (Ativan Inj) 0.5 mg NOW STAT IV 10/22/17 14:16 10/22/17 14:18 DC 10/22/17 14:39 0.5 MG Ketorolac Tromethamine (Toradol Inj) 30 mg NOW STAT IV 10/22/17 14:16 10/22/17 14:18 DC 10/22/17 14:40 30 MG Ondansetron HCl (Zofran Inj) 4 mg NOW STAT IV 10/22/17 14:16 10/22/17 14:19 DC 10/22/17 14:39 4 MG Lorazepam (Ativan Inj) 1 mg NOW STAT IV 10/22/17 15:20 10/22/17 15:21 DC 10/22/17 15:56 1 MG ECG Rate (beats per minute): 90 Rhythm: normal sinus Findings: no acute ischemic change, no ectopy ED Course 1514: I checked on the patient to ensure that she was stable. Her headache has improved. We discussed giving her the rest of her fluids and Ativan. 1637: I checked with the patient and she feels more relaxed and would like to go home. Medical Decision Differential: Headache, Migraine, Cluster Headache, Seizure, Meningitis, Sinusitis, CO exposure, ICH/SAH, Infectious, Tumor, Sinus Thrombosis, Arterial Dissection, amongst other pathologies entertained. 47 yr old female arrives with acute right sided headache. She has long history of migraines though none in last few months and notes while pain and severity is similar, it came on a bit faster than usual. Admits that inciting event being severe anxiety of trying to buy a house. Associated with left axillae pain earlier which has was worse with anxiety. No abnormalities on EKG nor is there trop elevation. I do not feel this is ACS. I did opt for CT imaging to rule out SAH given rapid onset which was fortunately negative. I do not feel LP nor MRI nor angio indicated at this time. Given above with improvement and then some further ativan as initial dose did effect her too much. She does not have meningitis nor encephalitis. She is feeling much better once all fluids in and calming down. I do not feel she requires nor meets inpatient criteria. We reviewed need to RTED if worsening or other concerns. Impression Primary Impression: Headache Additional Impression: Anxiety Scribe Attestation The scribe's documentation has been prepared under my direction and personally reviewed by me in its entirety. I confirm that the note above accurately reflects all work, treatment, procedures, and medical decision making performed by me. Departure Information Dispostion Home / Self-Care Referrals No Doctor, Assigned (PCP) Patient Instructions ED Headache Migraine, [facility] Additional Instructions You have received a benzodiazepine medication. These medications may cause drowsiness and should not be used with other sedative medications. Do not drive , drink alcohol, perform dangerous activities, nor make important decisions after taking these medications. You have been examined and treated today on an emergency basis only. This is not a substitute for, or an effort to provide, complete comprehensive medical care. It is impossible to recognize and treat all injuries or illnesses in a single emergency department visit. It is therefore important that you follow up closely with your Primary Physician. Call as soon as possible for an appointment so you can review all labs, imaging and other testing that you had. Return to Emergency Department, call 911 or seek immediate medical attention if you feel your symptoms are worsening. Problem Qualifiers
[2017-10-22 14:43] LABS: BASO % 0.8 %; BASO ABS # 0.08 K/uL (0-0.2); COMPLETE YES; EOS % 3.5 %; HEMATOCRIT 39.9 % (37-47); IG% 0.3 %; LYMPH % 35.5 %; LYMPH ABS # 3.61 K/uL (1.2-3.4); MEAN CELL VOLUME 89.3 fL (80-100); MEAN CORPUSCULAR HEMOGLOBIN 29.3 pg (25-34); MEAN CORPUSCULAR HGB CONC 32.8 g/dl (32-36); MEAN PLATELET VOLUME 9.4 fL (7.4-10.4); MONO % 7.3 %; NEUT % 52.6 %; PLATELET COUNT 344 K/uL (130-400); RED BLOOD COUNT 4.47 M/uL (4.2-5.4); WHITE BLOOD COUNT 10.17 K/uL (4.8-10.8)
[2017-10-22 15:04] LABS: BUN/CREATININE RATIO 23.2 (10-20); CALCIUM 10.3 mg/dl (8.5-10.1); CREATININE 0.81 mg/dl (0.60-1.20); POTASSIUM 3.7 mmol/L (3.5-5.1)
--- NOTE | 2017-10-22 15:13 | DIAGNOSTIC IMAGING REPORT ---
HEAD WITHOUT CONTRAST (CT) CLINICAL HISTORY: 47 years-old Female with sudden onset headache 3 hrs earlier. Acute headache TECHNIQUE: Multiple axial CT images of the head were obtained without contrast. A dose lowering technique was utilized adhering to the principles of ALARA. CT DOSE: 638.56 mGycm COMPARISON: CT head 02/17/2016. FINDINGS: No acute intracranial hemorrhage, midline shift, intracranial mass, hydrocephalus, territorial ischemia or abnormal extra-axial collection. The calvarium is intact. The paranasal sinuses, mastoid air cells, and middle ear cavities are clear. IMPRESSION: No acute intracranial abnormality. The above report was generated using voice recognition software. It may contain grammatical, syntax or spelling errors. Electronically signed by: Skip Rodriguez M.D. 10/22/2017 3:12 PM Dictated Date/Time: 10/22/2017 3:10 PM
[2017-10-22 16:50] VITALS: BP 131/81; PULSE 75; O2SAT 97
[2017-10-26] MEDS ORDERED: ESTROGEN PATCH EXT (10:50)
== END 2017-10-22 16:55 | disposition home or self-care (01) ==
LOC: C.EDB 13:44
DX: G43.909 Migraine, unspecified, not intractable, without status migrainosus (principal); F41.9 Anxiety disorder, unspecified; Z90.49 Acquired absence of other specified parts of digestive tract; Z90.710 Acquired absence of both cervix and uterus; Z79.899 Other long term (current) drug therapy

== ENCOUNTER → 2017-10-29 | Day surgery (SDC) | payer BC ==
[2017-10-26 10:50] VITALS: Ht 162.6 cm; Wt 90.0 kg
--- NOTE | 2017-10-28 15:23 | History and Physical: Surg Cnt ---
History & Physical Date Oct 28, 2017. Chief Complaint tonsillitis History of Present Illness The patient is a 47 year old female with complaints of chronic tonsillitis Past Medical/Surgical History Medical Problems: (1) Chronic migraine (2) History of gastric ulcer (3) RUQ abdominal pain Surgical Problems: (1) History of cholecystectomy (2) History of hysterectomy Additional History Hepatic Disease: No Endocrine Disorder: No Kidney Disease: No Hypertension: No Heart Disease: No Bleeding Tendencies: No Infectious Diseases: No Allergies Coded Allergies: Antihistamines, Chlorpheniramine-ty (Verified Allergy, Unknown, "FEELS LIKE SHE IS GOING CRAZY", 10/26/17) Metoclopramide (Verified Allergy, Unknown, "crazy", 10/26/17) Prochlorperazine (Verified Allergy, Unknown, "crazy", 10/26/17) Morphine (Verified Adverse Reaction, Unknown, GI SYMPTOMS, 10/26/17) Home Medications Scheduled Diltiazem Hcl Coated Beads (Diltiazem Hcl Er), 120 MG PO HS Fluoxetine (Prozac), 20 MG PO HS [Estrogen Patch], 1 DOSE EXT WK Scheduled PRN Butorphanol Tartrate (Butorphanol Tartrate), 1 SPRAY YESENIA Q3HRS PRN for Migraine Ibuprofen (Advil), 400-600 MG PO Q6H PRN for Pain Physical Examination Skin: warm/dry, no rash Eyes: normal inspection, EOMI, sclerae normal ENT: normal ENT inspection, pharynx normal Head: normocephalic, atraumatic Neck: supple, no adenopathy, trachea midline Respiratory/Chest: lungs clear, normal breath sounds, no respiratory distress Cardiovascular: regular rate, rhythm, no edema, no murmur Abdomen / GI: normal bowel sounds, non tender Back: normal inspection Extremities: normal inspection, normal range of motion Neurologic/Psych: no motor/sensory deficits, alert, normal reflexes, oriented x 3 Diagnosis chronic tonsillitis Plan of Treatment adeno tonsillectomy
[~2017-10-29] VITALS: Ht 162.6 cm; Wt 90.0 kg
[~2017-10-29] MED LIST changes: +ACETAMINOPHEN/HYDROCODONE ELIX 15 ML/CUP UDP PO PRN; +ATROPINE SULFATE 0.1 MG/ML 5ML SYR IV PRN; +BUPIVACAINE/EPINEPHRINE 0.5% MPF 1:200,000 30 ML VIAL ONE; +DEXAMETHASONE SOD INJ 4 MG/ML VIAL ONE; -DICL1GEL34 TOP; +ESTROGEN PATCH EXT; +EpHEDrine SULFATE INJ 50 MG/ML AMP IV PRN; +FENTANYL CITRATE INJ 50 MCG/1 ML 2 ML VIAL ONE; +HYDR1SOL10 PO; +LABETALOL HCL IV 5 MG/ML 20ML IV ONE; +LACTATED RINGER'S 1000ML 1,000 ML IV SCH; +LIDOCAINE HCL 2% 2 ML VIAL (20MG/ML) ONE; +MIDAZOLAM HCL 1 MG/ML 2ML VIAL ONE; +NURSING VERBAL MED ORDER ONE; +ONDANSETRON INJ 2 MG/ML 2 ML VIAL ONE; +PROPOFOL IV EMULSION 10 MG/ML 20 ML VIAL IV ONE; +SODIUM CHLORIDE 0.9% 1000ML 1,000 ML IV SCH; +SUCCINYLCHOLINE CHLORIDE 20 MG/ML 10 ML VIAL IV ONE
--- NOTE | 2017-10-29 06:57 | History & Physical Bridge Note ---
H&P Re-Evaluation Bridge Note: I have examined the patient, reviewed the History & Physical and in the interval since the performance of the History & Physical I have noted the following changes of clinical significance: No changes noted
--- NOTE | 2017-10-29 07:53 | Discharge Instructions-SurgCtr ---
Discharge Instructions Date of Service Oct 29, 2017. Visit Reason for Visit: Chronic Tonsillitis Discharge Discharge Diagnosis / Problem: same Discharge Goals Goal(s): Improve disease control Activity Recommendations Activity Limitations: per Instructions/Follow-up section Anesthesia . Post Anesthesia Instructions: If you have had General Anesthesia or IV Sedation: * Do not drive today. * Resume driving when surgeon permits. * Do not make important decisions or sign legal documents today. * Call surgeon for: 1. Temperature elevations greater than 101 degrees F. 2. Uncontrollable pain. 3. Excessive bleeding. 4. Persistent nausea and vomiting. 5. Medication intolerance (nausea, vomiting or rash). * For nausea and vomiting use only clear liquids such as: tea, soda, bouillon until nausea subsides, then gradually increase diet as tolerated. * If you have any concerns or questions, call your surgeon's office. If physician is unavailable and it is an emergency, call 911 or go to the nearest emergency room. . Instructions / Follow-Up Instructions / Follow-Up ACTIVITY RECOMMENDATIONS: * During the first few days, activities should be limited. * Stay indoors for several days. * After 48 hours, activity can gradually be increased to normal activity. RETURN TO SCHOOL/WORK: * Return to school or work in one week. * No physical education for two weeks. OVER THE COUNTER MEDICATIONS: * You may use Tylenol * Avoid aspirin or aspirin containing products, e.g. as they may increase bleeding. SPECIAL CARE INSTRUCTIONS: * Avoid coughing or clearing the throat. * Do not use a straw. * A sore throat is expected frequently accompanied by pain radiating to the ears. This is normal. * Expect bad breath until "scabs" are healed. * Notify the doctor if bleeding occurs, vomiting, temperature greater than 101 degrees Fahrenheit. Call or cell phone: . * If bleeding occurs, it is usually in the first 24 hours or after the 5th day. If unable to reach the doctor, go to the nearest Emergency Department. Special Diet: * Fluids are very important and should be encouraged to maintain adequate hydration. * To maintain nutrition, eat soft foods and after 48 hours the consistency of foods can be increased. Examples are jello, soup, pasta, ice cream and mashed foods. FOLLOW UP VISIT: Follow-up visit with Dr. Ordoñez in 2 weeks. Please call to schedule if not already scheduled. Diet Recommendations Home Diet: special diet Diet Texture: Mechanical Soft (ground) Pending Studies Studies pending at discharge: no Medical Emergencies . Who to Call and When: Medical Emergencies: If at any time you feel your situation is an emergency, please call 911 immediately. . Non-Emergent Contact Non-Emergency issues call your: Primary Care Provider . . "Provider Documentation" section prepared by Katalina Ordoñez. . [place] Drug Monitoring Program Search Results: no issues identified
--- NOTE | 2017-10-29 08:26 | [facility] Post Operative Brief Note ---
Immediate Operative Summary Operative Date Oct 29, 2017. Pre-Operative Diagnosis Chronic Tonsilittis Post-Operative Diagnosis Same Procedure(s) Performed Tonsillectomy And Adenoidectomy Surgeon Dr. Abraham Ordoñez Bullion Weigher Surgeon(s) None Estimated Blood Loss 10 cc Findings tonsillitis Specimens A. Right Tonsil B. Left Tonsil Anesthesia GET Complication(s) None Disposition Recovery Room / PACU
[2017-10-29] MEDS: FENTANYL CITRATE INJ 50 MCG/1 ML 2 ML VIAL IV PRN ×4 (08:43→08:59)
--- NOTE | 2017-10-29 09:55 | Anesthesia Progress Nt - [facility] ---
Anesthesia Post Op Note Date & Time Oct 29, 2017 at 09:54 Vital Signs Pain Intensity: 6 Vital Signs Past 12 Hours Date Time Temp Pulse Resp B/P (MAP) Pulse Ox O2 Delivery O2 Flow Rate FiO2 10/29/17 09:48 79 15 99 10/29/17 09:48 81 15 10/29/17 09:46 143/99 10/29/17 09:43 84 18 95 10/29/17 09:43 87 18 10/29/17 09:41 150/99 10/29/17 09:38 77 10 100 10/29/17 09:38 77 10 10/29/17 09:36 138/95 10/29/17 09:33 77 12 10/29/17 09:33 76 12 100 10/29/17 09:32 77 10 100 10/29/17 09:32 78 10 10/29/17 09:31 142/102 10/29/17 09:30 36.9 83 12 150/99 99 Humidified Oxygen 6 Diffusion Mask 10/29/17 09:27 81 10 10/29/17 09:27 79 10 100 10/29/17 09:26 152/104 10/29/17 09:22 93 20 100 10/29/17 09:22 90 20 10/29/17 09:21 156/100 10/29/17 09:18 159/106 10/29/17 09:17 83 14 171/127 99 10/29/17 09:17 82 14 10/29/17 09:12 85 10 100 10/29/17 09:12 86 10 10/29/17 09:11 150/112 10/29/17 09:09 151/120 10/29/17 09:07 93 26 10/29/17 09:07 95 26 92 10/29/17 09:02 81 16 10/29/17 09:02 81 16 100 10/29/17 09:01 157/104 10/29/17 08:57 81 20 151/103 100 10/29/17 08:57 80 20 10/29/17 08:52 109 7 10/29/17 08:52 108 7 100 10/29/17 08:51 178/124 10/29/17 08:48 200/124 10/29/17 08:47 106 10 10/29/17 08:47 106 10 100 10/29/17 08:46 189/134 10/29/17 08:42 107 8 195/139 100 10/29/17 08:42 107 8 10/29/17 08:41 190/133 10/29/17 08:37 109 7 10/29/17 08:37 109 7 100 10/29/17 08:36 194/106 10/29/17 08:33 201/131 10/29/17 08:32 109 10/29/17 08:32 109 100 10/29/17 08:32 37.1 114 16 152/104 100 Humidified Oxygen 6 Diffusion Mask 10/29/17 07:03 36.9 81 18 145/94 (111) 96 Room Air Notes Mental Status: alert / awake / arousable, participated in evaluation Pt Amnestic to Procedure: Yes Nausea / Vomiting: adequately controlled Pain: adequately controlled Airway Patency, RR, SpO2: stable & adequate BP & HR: stable & adequate Hydration State: stable & adequate Anesthetic Complications: no major complications apparent
[2017-10-29 10:17] VITALS: TEMP 36.2
--- NOTE | 2017-10-29 11:10 | OPERATIVE REPORT ---
DATE OF OPERATION: 10/29/2017 PREOPERATIVE DIAGNOSES: Chronic tonsillitis. Adenoid hypertrophy. POSTOPERATIVE DIAGNOSES: Same. PROCEDURE: Adenotonsillectomy. SURGEON: Dr. Ordoñez. ANESTHESIA: General endotracheal. COMPLICATIONS: None. BLOOD LOSS: 10 mL HISTORY OF PRESENT ILLNESS: This 47-year-old lady developed recurrent chronic tonsillitis for the past several years, treated with antibiotics without response. DESCRIPTION OF PROCEDURE: The patient was brought to the operating room and placed in supine position. General endotracheal anesthesia was induced, draped in the usual manner. Mouth gag was placed. Peritonsillar area was injected with .5% Sensorcaine, 1:200:000 strength epinephrine. Soft palate retracted using a red Stein catheter. Tonsillectomy performed using the coblation device coblating out the tonsil from anterior to the posterior pillar and from the superior pole to the inferior pole. Both tonsils were removed in a similar manner. Hemostasis was controlled with the coblation device. Adenoidectomy was performed using the coblation technique and hemostasis controlled using the coblation technique. The patient tolerated the procedure well and was taken to the recovery room in satisfactory condition. I attest to the content of the Intraoperative Record and any orders documented therein. Any exception s are noted below.
[2017-10-29 11:29] VITALS: BP 133/91; PULSE 74; O2SAT 96
== END | disposition home or self-care (01) ==
LOC: X.SURG 06:36
PROVIDERS: ATTEND Otolaryngology
DX: J35.01 Chronic tonsillitis (principal); J35.2 Hypertrophy of adenoids; K21.9 Gastro-esophageal reflux disease without esophagitis; E78.5 Hyperlipidemia, unspecified; F41.9 Anxiety disorder, unspecified; G43.909 Migraine, unspecified, not intractable, without status migrainosus; E66.9 Obesity, unspecified; Z79.899 Other long term (current) drug therapy

== ENCOUNTER 2017-11-20 17:32 | Emergency (ER) | payer BC ==
[~2017-11-20] VITALS: Ht 162.6 cm; Wt 93.6 kg
[~2017-11-20 17:32] MED LIST changes: -ACETAMINOPHEN/HYDROCODONE ELIX 15 ML/CUP UDP PO PRN; -ATROPINE SULFATE 0.1 MG/ML 5ML SYR IV PRN; -BUPIVACAINE/EPINEPHRINE 0.5% MPF 1:200,000 30 ML VIAL ONE; -DEXAMETHASONE SOD INJ 4 MG/ML VIAL ONE; -EpHEDrine SULFATE INJ 50 MG/ML AMP IV PRN; -FENTANYL CITRATE INJ 50 MCG/1 ML 2 ML VIAL ONE; -IBUP-1050 PO; -LABETALOL HCL IV 5 MG/ML 20ML IV ONE; -LACTATED RINGER'S 1000ML 1,000 ML IV SCH; -LIDOCAINE HCL 2% 2 ML VIAL (20MG/ML) ONE; -MIDAZOLAM HCL 1 MG/ML 2ML VIAL ONE; -NURSING VERBAL MED ORDER ONE; -ONDANSETRON INJ 2 MG/ML 2 ML VIAL ONE; -PROPOFOL IV EMULSION 10 MG/ML 20 ML VIAL IV ONE; -SODIUM CHLORIDE 0.9% 1000ML 1,000 ML IV SCH; -SUCCINYLCHOLINE CHLORIDE 20 MG/ML 10 ML VIAL IV ONE
[2017-11-20 17:39] VITALS: TEMP 36.4; Ht 162.6 cm; Wt 93.6 kg
[2017-11-20] MEDS ORDERED: KRIL1000 PO (18:12)
[2017-11-20] MEDS ORDERED: HYDR200T5 PO (18:12)
[2017-11-20] MEDS ORDERED: MAGN400T6 PO (18:12)
[2017-11-20] MEDS ORDERED: FLUO40CA8 PO (18:12)
[2017-11-20] MEDS ORDERED: CALCCAP15 PO (18:12)
[2017-11-20] MEDS ORDERED: MELO15TA4 PO (18:23)
[2017-11-20 18:47] VITALS: BP 142/76; PULSE 76; O2SAT 98
--- NOTE | 2017-11-20 21:09 | EMERGENCY ROOM VISIT NOTE ---
History First contact with patient: 18:16 Chief Complaint: HEAD PAIN Stated Complaint: HEAD,EYE,EAR,AND NECK PAIN,DIZZY History of Present Illness The patient is a 47 year old white female who presents to the Emergency Room with complaints of left-sided facial pain that has developed into a headache. She states it is different than her usual migraines. She had a tonsillectomy with adenoidectomy done 2 weeks ago. She states she has developed some left- sided jaw and ear pain that is radiating to her scalp. She describes a pressure in her head as well. She was just seen here 3 weeks ago and had a CT scan of her head that was entirely normal. She denies any cold symptoms. No fevers, chills, sweats, nausea, vomiting, cough, or rhinorrhea. No change in vision or speech. No change in hearing. She notes some difficulty opening her jaw secondary to discomfort. She has not been eating any excessively chewy foods. She does note some intermittent dizziness. She has been using ibuprofen without much improvement. She states Tylenol does not work for her. No trauma. Review of Systems REVIEW OF SYSTEM: HEENT: No visual problems, hearing loss, or tinnitus. There is no difficulty swallowing and no oral lesions are present. PULMONARY: No cough, shortness of breath, sputum production or hemoptysis. CARDIOVASCULAR: No chest pain, palpitations, shortness of breath or peripheral edema. GASTROINTESTINAL: No diarrhea, constipation, nausea, vomiting, or abdominal pain. GENITOURINARY: No dysuria, frequency, urgency or nocturia. NEUROLOGIC: No weakness, muscle tenderness, epilepsy or history of neurological problems. Positive history of chronic headaches. MUSCULOSKELETAL: No history of joint tenderness/swelling. No history of arthritis or arthralgias. SKIN: No rashes or lesions. PSYCHIATRIC: Positive history of depression. ENDOCRINE: No history of diabetes, thyroid disorders, or abnormal hair growth. Past Medical/Surgical History Medical Problems: (1) Chronic migraine (2) History of gastric ulcer (3) RUQ abdominal pain Surgical Problems: (1) History of cholecystectomy (2) History of hysterectomy Family History No pertinent family history Noncontributory. Social History Smoking Status: Never Smoker Smokeless Tobacco Use: No Alcohol Use: occasionally Drug Use: none Marital Status: Housing Status: lives with family Occupation Status: employed Current/Historical Medications Scheduled Calcium Carbonate-Cholecalcife (Calcium Plus Vitamin D3), 1 CAP PO DAILY Diltiazem Hcl Coated Beads (Diltiazem Hcl Er), 120 MG PO HS Fluoxetine (Prozac), 40 MG PO DAILY Hydroxychloroquine Sulfate (Plaquenil), 200 MG PO BIDM Krill Oil (Krill Oil), 1 CAP PO UD Magnesium Oxide (Mag-Ox), 400 MG PO DAILY Meloxicam (Mobic), 15 MG PO DAILY [Estrogen Patch], 1 DOSE EXT WK Scheduled PRN Butorphanol Tartrate (Butorphanol Tartrate), 1 SPRAY YESENIA Q3HRS PRN for Migraine Physical Exam Vital Signs Date Time Temp Pulse Resp B/P (MAP) Pulse Ox O2 Delivery O2 Flow Rate FiO2 11/20/17 18:47 76 16 142/76 98 11/20/17 17:39 36.4 90 20 162/87 100 Room Air Physical Exam Gen.: Well-developed, well-nourished, middle-aged white female, in no acute distress. Sitting on a bed. Alert and oriented. Skin:Warm and dry with good turgor. No rashes or lesions. No ecchymosis or erythema. The patient is not diaphoretic. No abrasions. HEENT: Normocephalic atraumatic. Eyes PERRLA, EOMI. No conjunctiva or scleral injection. Ears TMs intact bilaterally with good light reflexes. No erythema or bulging. No hemotympanum. Canals are patent. Nares patent bilaterally without turbinate enlargement. No significant drainage. No epistaxis. Oropharynx without erythema or exudate. Uvula midline, oral mucosa moist. No lesions present. No enlargement of the uvula. She does have focal discomfort with palpation over the left TMJ. Good motion of the jaw but this does increase her left-sided pain. No dental decay. No visible abscess. Lymphatics are palpated without anterior or posterior chain enlargement or tenderness. No periauricular enlargement. No salivary gland enlargement or tenderness. Musculoskeletal: Patient has full range of motion of her neck. No palpable spasm in the neck musculature. Medical Decision & Procedures ED Course Patient was educated regarding today's findings. Conservative care measures were discussed. She just had a CT scan of her head 3 weeks ago. I do not think additional imaging is necessary at this time. Patient did take Naprosyn 440 mg approximately 2 hours ago. Option of prescription anti-inflammatory was discussed. She would like to try. She does have a sensitive stomach. Prescription was given for Motrin 15 mg daily 7 days. She may started around 3 AM if desired. She may use Tylenol for additional relief. Avoid chewing gum. Avoid chewy foods. She was reassured that I find no signs of infection. I do not suspect intra-cranial lesion at this point. Follow-up with her PCP as needed. Return to the ED for any acute changes. Medical Decision Possibility of strep pharyngitis, peritonsillar abscess, salivary stone, uvulitis, dental infection, sinusitis, otitis media, otitis externa, mastoiditis , TMJ syndrome, and viral infection were considered among others. Medication Reconcilliation Current Medication List: was personally reviewed by me Impression Primary Impression: Migraine headache without aura Additional Impression: TMJ syndrome Departure Information Dispostion Home / Self-Care Condition GOOD Prescriptions Meloxicam (MOBIC) 15 Mg Tab 15 MG PO DAILY, #7 TAB Prov: Nathaniel Kat,P.A. 11/20/17 Referrals Joanna Portillo (PCP) No Doctor, Assigned Forms WORK / SCHOOL INSTRUCTIONS, HOME CARE DOCUMENTATION FORM, TYLENOL USE, IMPORTANT VISIT INFORMATION Patient Instructions My [facility] Additional Instructions Rest in a quiet dark room Maintain hydration Mobic one pill daily for 7 days Do not take Motrin, Advil, or Aleve while taking Mobic You may take Tylenol every 6 hours for breakthrough pain Follow-up with your PCP Avoid excessively chewy or hard foods until symptoms fully resolve Return to the ED for any other concerns Problem Qualifiers
== END 2017-11-20 18:47 | disposition home or self-care (01) ==
LOC: C.EDB 17:34 → C.EDA 18:47
DX: G43.909 Migraine, unspecified, not intractable, without status migrainosus (principal); M26.622 Arthralgia of left temporomandibular joint; R42 Dizziness and giddiness; Z90.49 Acquired absence of other specified parts of digestive tract; Z90.710 Acquired absence of both cervix and uterus; Z90.89 Acquired absence of other organs